=== PATIENT | male | born 1965 | race Caucasian/White ===

== ENCOUNTER → 2018-01-06 10:17 | Outpatient (CLI) | payer MEDICARE, SELFPAY ==
--- NOTE | 2018-01-06 10:27 | US_ITS ---
STUDY: ABDOMINAL ULTRASOUND - RIGHT UPPER QUADRANT REASON FOR VISIT: Male, 52 years old. Pain. Vomiting. TECHNIQUE: Ultrasound evaluation of the right upper quadrant was performed with real-time and static barrett-scale imaging. TECHNICAL QUALITY: Adequate. COMPARISON: None. FINDINGS: Liver: The liver measures 15.1 cm. There is increased echogenicity consistent with fatty infiltration. The bile ducts are within normal limits. There is hepatic color flow. The direction of portal flow is hepatopetal. There is no demonstrated mass lesion. Gallbladder: Normal distended gallbladder. The gallbladder wall measures 3 mm. There is a negative sonographic Pinedo's sign. There is no pericholecystic fluid. There are no gallstones. Common Bile Duct (C.B.D.): The common bile duct measures 4 mm. Pancreas: Normal size of the head, body and tail of the pancreas. There is normal echogenicity of the pancreas. There is no demonstrated pancreatic mass or cyst. Right Kidney: Normal size of the right kidney. The right kidney measures 12.4 cm. Normal renal cortex. There is no demonstrated renal mass or cyst. There is no right hydronephrosis. US/Abdomen Limited IMPRESSION: Fatty liver without evidence of a focal mass. Otherwise, unremarkable right upper quadrant ultrasound. Electronically Signed: Bharat Vasquez, at 18:46 EDT Tel , Service support ,
== END ==
PROVIDERS: Family Provider Family Medicine; PCP Family Medicine; Visit Provider Family Medicine
DX: K76.0 Fatty (change of) liver, not elsewhere classified (principal); R10.9 Unspecified abdominal pain
CPT/HCPCS: 76705

== ENCOUNTER → 2018-01-30 10:47 | Outpatient (CLI) | payer MEDICARE, SELFPAY ==
--- NOTE | 2018-01-30 10:53 | NM_ITS ---
CLINICAL: 52-year-old male with reported history of abdominal pain and nausea. RADIONUCLIDE HEPATOBILIARY SCINTIGRAPHY COMPARISON: Abdominal ultrasound report 01/06/2018 FINDINGS: Following the intravenous administration of 5.7 mCi of 99m Tc Mebrofenin, hepatobiliary images reveal: 1. Relatively prompt and homogeneous radiopharmaceutical concentration is noted by a normal sized liver. No parenchymal defects are identified. 2. Gallbladder activity is identified at 15 minutes post radiopharmaceutical administration. 3. Intestinal tract is not visualized during 60 minutes of sequential image acquisition. Small bowel is defined following the administration of the fatty meal. 4. Washout of the radiopharmaceutical by the hepatic parenchyma appears qualitatively normal. The patient was administered a fatty meal (8 ounces Boost). The post fatty meal ingestion gallbladder ejection fraction calculated at 29 minutes following meal consumption was noted to be 36.0 % (normal greater than 30%). NM/Hepatobilliary Img w/Pharm Int IMPRESSION: 1. NORMAL 99m Tc Mebrofenin hepatobiliary imaging examination with fatty meal ingestion. A. A gallbladder ejection fraction calculated to be greater than 30% following the administration of an ingested fatty meal makes the probability of functional hepatobiliary disease (gallbladder and/or sphincter of Oddi dyskinesia) and/or organic hepatobiliary disease (chronic acalculous cholecystitis and/or cystic duct syndrome) to be low. (Alfredo and Chris, J Nucl Med 43: 1603, 2002). Electronically Signed: Juwan Mckeon DO at 23:52 EDT Tel , Service support ,
== END ==
PROVIDERS: Family Provider Family Medicine; PCP Family Medicine; Referring Provider Family Medicine; Visit Provider Family Medicine
DX: R10.9 Unspecified abdominal pain (principal)
CPT/HCPCS: 78227; A9537

== ENCOUNTER → 2019-02-08 11:34 | Outpatient (CLI) | payer MEDICARE, SELFPAY ==
[2015-03-20 10:43] VITALS: BMI 34.2
[2019-02-08 14:52] LABS: AST(SGOT) 21 U/L (15-37); Alanine Aminotransfer ALT/SGPT 42 U/L (16-61); Anion Gap 6 (5-15); BUN 14 mg/dL (7-18); BUN/Creat Ratio 13.9 RATIO (10-20); Calcium,Total 8.8 mg/dL (8.5-10.1); Chloride 102 mmol/L (98-107); Cholesterol 171 mg/dL (200); Creatinine, Serum 1.01 mg/dL (0.70-1.30); EST Glomerular Filtration Rate 82 mL/min (>60); Est Glom Filt Rate - Afr Amer 99 mL/min (>60); Glucose 177 mg/dL (74-106); High Density Lipoprotein 34 mg/dL; Potassium 3.9 mmol/L (3.5-5.1); Sodium Level 136 mmol/L (136-145); Triglycerides 487 mg/dL
== END ==
PROVIDERS: Family Provider Family Medicine; PCP Family Medicine; Referring Provider Family Medicine; Visit Provider Family Medicine
DX: I10 Essential (primary) hypertension (principal); E78.00 Pure hypercholesterolemia, unspecified
CPT/HCPCS: 36415; 80048; 80061; 84450; 84460

== ENCOUNTER → 2019-03-15 13:10 | Outpatient (CLI) | payer MEDICARE, SELFPAY ==
--- NOTE | 2019-03-15 13:17 | US_ITS ---
STUDY: SCROTUM ULTRASOUND REASON FOR EXAM: Male, 54 years old. Left testicular pain. TECHNIQUE: Ultrasound evaluation of the scrotum was performed with color Doppler and static barrett-scale imaging. COMPARISON: None. FINDINGS: RIGHT TESTICLE INTRATESTICULAR: There is a normal size of the right testicle. The right testicle measures 4.5 x 2.4 x 2.1 cm. There is a homogenous echotexture. There is normal arterial and normal venous vascularity. There is no demonstrated right testicular mass or cyst. EXTRATESTICULAR: The epididymis is normal in size. The epididymis head measures 0.9 x 0.5 x 0.8 cm. There is normal vascularity of the epididymis. There is no demonstrated epididymal cystic structure. There is no demonstrated hydrocele. There is no demonstrated varicocele. There is no demonstrated extratesticular mass or cyst. The scrotal wall measures 0.3 cm. LEFT TESTICLE INTRATESTICULAR: There is a normal size of the left testicle. The left testicle measures 4.3 x 2.4 x 2.5 cm. There is a homogenous echotexture. There is normal arterial and normal venous vascularity. There is no demonstrated left testicular mass or cyst. EXTRATESTICULAR: The epididymis is normal in size. The epididymis head measures 0.7 x 0.9 x 1.2 cm. There is normal vascularity of the epididymis. There are 2, well-defined cystic structure within the epididymis, without internal echoes, consistent with an epididymal cysts, measuring 1.4 x 1.2 x 1.1 cm and 0.8 x 0.6 x 0.7 cm. There is no demonstrated hydrocele. There is no demonstrated varicocele. There is no demonstrated extratesticular mass or cyst. The scrotal wall measures 0.3 cm. US/Testicular with Arterial Flow IMPRESSION: Small left epididymal cysts measuring 1.4 cm and 0.8 cm in maximum dimension. Remainder of the testicular ultrasound within normal limits. No evidence of intratesticular mass. Normal symmetrical color flow within the bilateral testes. Electronically Signed: Ami Zarco MD at 5:36 EST , Service support ,
== END ==
PROVIDERS: Family Provider Family Medicine; PCP Family Medicine; Referring Provider Family Medicine; Visit Provider Family Medicine
DX: N50.89 Other specified disorders of the male genital organs (principal)
CPT/HCPCS: 76870; 93976

== ENCOUNTER → 2019-05-30 10:32 | Outpatient (CLI) | payer MEDICARE, SELFPAY ==
[2015-03-20 10:43] VITALS: BMI 34.2
--- NOTE | 2019-05-30 10:44 | EKG12_ITS ---
Test Reason : PREOP Blood Pressure : / mmHG Vent. Rate : 067 BPM Atrial Rate : 067 BPM P-R Int : 146 ms QRS Dur : 094 ms QT Int : 422 ms P-R-T Axes : 047 020 037 degrees QTc Int : 445 ms Normal sinus rhythm Normal ECG When compared with ECG of 20-MAR-2015 10:56, No significant change was found Confirmed by DELORES WESTFALL ([id number]), pictures editor DAGO COSTA ([id number]) on 05/30/2019 1:13:26 PM Referred By: Mulugeta Perales Confirmed By:DELORES WESTFALL
[2019-05-30 11:28] LABS: Hematocrit 42.8 % (40-54); Hemoglobin 14.8 g/dL (13.0-16.5); Mean Corp Hgb Conc 34.6 g/dL (32-36); Mean Corpuscular Hgb 30.4 pg (27.0-32.0); Mean Corpuscular Volume 87.9 fL (80-94); Mean Platelet Vol. 10.3 fl (6.2-12.0); Platelet Count 177 K/mm3 (150-450); RBC Distribution Width CV 12.2 % (11.6-14.6); RBC Distribution Width SD 39.4 fl (35.1-43.9); Red Blood Count 4.87 M/mm3 (4.6-6.2)
[2019-05-30 11:57] LABS: Anion Gap 6 (5-15); BUN 11 mg/dL (7-18); BUN/Creat Ratio 9.4 RATIO (10-20); Calcium,Total 8.7 mg/dL (8.5-10.1); Chloride 107 mmol/L (98-107); Creatinine, Serum 1.17 mg/dL (0.70-1.30); EST Glomerular Filtration Rate 69 mL/min (>60); Est Glom Filt Rate - Afr Amer 84 mL/min (>60); Glucose 209 mg/dL (74-106); Sodium Level 138 mmol/L (136-145)
== END ==
LOC: LAB.FUTURE 10:34 → LAB 10:36
PROVIDERS: PCP Family Medicine; Referring Provider Urology; Visit Provider Urology
DX: Z01.812 Encounter for preprocedural laboratory examination (principal); I10 Essential (primary) hypertension
CPT/HCPCS: 36415; 80048; 85027; 93005

== ENCOUNTER → 2020-06-23 14:21 | Outpatient (CLI) | payer MEDICARE, SELFPAY ==
[2015-03-20 10:43] VITALS: BMI 34.2
[2020-06-23 15:05] LABS: PSA,Total - Annual Screen 0.76 ng/mL (0.00-4.00)
== END ==
PROVIDERS: PCP Family Medicine; Referring Provider Urology; Visit Provider Urology
DX: Z12.5 Encounter for screening for malignant neoplasm of prostate (principal)
CPT/HCPCS: 36415; 84153; G0103

== ENCOUNTER → 2020-09-15 13:51 | Outpatient (CLI) | payer MEDICARE, SELFPAY ==
[2015-03-20 10:43] VITALS: BMI 34.2
[2020-09-15 17:00] LABS: AST(SGOT) 21 U/L (15-37); Alanine Aminotransfer ALT/SGPT 35 U/L (16-61); Anion Gap 7 (5-15); BUN 14 mg/dL (7-18); BUN/Creat Ratio 13.9 RATIO (10-20); Chloride 105 mmol/L (98-107); Cholesterol 154 mg/dL (200); Creatinine, Serum 1.01 mg/dL (0.70-1.30); EST Glomerular Filtration Rate 82 mL/min (>60); Est Glom Filt Rate - Afr Amer 99 mL/min (>60); Glucose 94 mg/dL (74-106); High Density Lipoprotein 43 mg/dL; Potassium 3.6 mmol/L (3.5-5.1); Sodium Level 139 mmol/L (136-145); Thyroid Stim Hormone (TSH) 1.85 uIU/mL (0.358-3.74); Triglycerides 167 mg/dL; Very Low Density Lipoprotein 33 mg/dL (5-40)
== END ==
PROVIDERS: PCP Family Medicine; Referring Provider Family Medicine; Visit Provider Family Medicine
DX: I10 Essential (primary) hypertension (principal); E78.5 Hyperlipidemia, unspecified
CPT/HCPCS: 36415; 80048; 80061; 84443; 84450; 84460

== ENCOUNTER → 2021-03-03 14:48 | Outpatient (CLI) | payer MEDICARE, SELFPAY ==
[2021-03-03 18:21] LABS: PSA,Total - Annual Screen 0.81 ng/mL (0.00-4.00)
== END ==
PROVIDERS: PCP Family Medicine; Referring Provider Family Medicine; Visit Provider Family Medicine
DX: Z12.5 Encounter for screening for malignant neoplasm of prostate (principal)
CPT/HCPCS: 36415; 84153; G0103

== ENCOUNTER → 2021-08-31 | Outpatient (CLI) | payer MEDICARE, SELFPAY ==
[2021-08-31 18:27] LABS: AST(SGOT) 21 U/L (15-37); Alanine Aminotransfer ALT/SGPT 42 U/L (16-61); Anion Gap 8 (5-15); BUN 14 mg/dL (7-18); BUN/Creat Ratio 15.8 RATIO (10-20); Chloride 104 mmol/L (98-107); Cholesterol 190 mg/dL (200); Creatinine, Serum 0.88 mg/dL (0.70-1.30); EST Glomerular Filtration Rate 95 mL/min (>60); Est Glom Filt Rate - Afr Amer 115 mL/min (>60); Glucose 99 mg/dL (74-106); High Density Lipoprotein 42 mg/dL; Potassium 4.5 mmol/L (3.5-5.1); Sodium Level 139 mmol/L (136-145); Triglycerides 263 mg/dL; Very Low Density Lipoprotein 53 mg/dL (5-40)
== END | disposition home or self-care (01) ==
LOC: MFPLAB 14:30
PROVIDERS: PCP Family Medicine; Referring Provider Family Medicine; Visit Provider Family Medicine
DX: E78.5 Hyperlipidemia, unspecified (principal); I10 Essential (primary) hypertension; Z12.5 Encounter for screening for malignant neoplasm of prostate
CPT/HCPCS: 36415; 80048; 80061; 84450; 84460

== ENCOUNTER → 2022-03-04 | Outpatient (CLI) | payer MEDICARE, SELFPAY ==
--- NOTE | 2022-03-04 14:51 | RAD_ITS ---
EXAM: XR LEFT KNEE COMPLETE, 4 OR MORE VIEWS CLINICAL INDICATION: KNEE PAIN TECHNIQUE: Four or more views of the left knee. This report was created using [employer] report generation technology. COMPARISON: None. FINDINGS: BONES/JOINTS: Narrowing of the medial knee joint compartment noted. Mild osteophytosis. No acute fracture or subluxation. Minimal joint effusion. SOFT TISSUES: Normal. No soft tissue swelling or gas. No radiopaque foreign body. RAD/Knee 4 or More Views IMPRESSION: DJD. Minimal joint effusion. Electronically Signed: Shaun Cruz MD at 16:46 EST ,
[2022-03-04 18:04] LABS: PSA,Total - Annual Screen 0.77 ng/mL (0.00-4.00)
== END | disposition home or self-care (01) ==
PROVIDERS: PCP Family Medicine; Referring Provider Family Medicine; Visit Provider Family Medicine
DX: M25.562 Pain in left knee (principal); Z12.5 Encounter for screening for malignant neoplasm of prostate
CPT/HCPCS: 36415; 73564; 84153; G0103

== ENCOUNTER → 2022-11-07 | Outpatient (CLI) | payer MEDICARE, SELFPAY ==
[2022-11-07 12:43] LABS: AST(SGOT) 20 U/L (15-37); Alanine Aminotransfer ALT/SGPT 38 U/L (16-61); Anion Gap 6 (5-15); BUN 14 mg/dL (7-18); BUN/Creat Ratio 15.4 RATIO (10-20); Chloride 106 mmol/L (98-107); Cholesterol 167 mg/dL (200); Creatinine, Serum 0.91 mg/dL (0.70-1.30); EST Glomerular Filtration Rate 92 mL/min (>60); Est Glom Filt Rate - Afr Amer 111 mL/min (>60); Glucose 167 mg/dL (74-106); High Density Lipoprotein 40 mg/dL; Microalbumin,Random Urine 22.2 mg/L (NO RANGE EST.); Microalbumin:Creatinine Ratio 11.7 mg/g CRE (<30 mg/g CRE); Sodium Level 136 mmol/L (136-145); Triglycerides 196 mg/dL; Very Low Density Lipoprotein 39 mg/dL (5-40)
== END | disposition home or self-care (01) ==
PROVIDERS: PCP Family Medicine; Referring Provider Family Medicine; Visit Provider Family Medicine
DX: I10 Essential (primary) hypertension (principal); E78.5 Hyperlipidemia, unspecified
CPT/HCPCS: 36415; 80048; 80061; 82043; 82570; 84450; 84460

== ENCOUNTER → 2023-03-10 | Outpatient (CLI) | payer MEDICARE, SELFPAY ==
[2023-03-10 18:59] LABS: PSA,Total - Annual Screen 0.79 ng/mL (0.00-4.00)
== END | disposition home or self-care (01) ==
LOC: MFPLAB 14:48
PROVIDERS: PCP Family Medicine; Visit Provider Family Medicine
DX: Z12.5 Encounter for screening for malignant neoplasm of prostate (principal)
CPT/HCPCS: 36415; 84153; G0103

== ENCOUNTER → 2023-10-13 | Outpatient (CLI) | payer MEDICARE, SELFPAY ==
--- NOTE | 2023-10-13 10:49 | RAD_ITS ---
INDICATION: pain EXAMINATION/TECHNIQUE: X-RAY - LEFT XR Knee Complete 4 Views or More 4 VIEWS COMPARISON: Prior study dated: 03/04/2022 FINDINGS: SOFT TISSUES: No soft tissue swelling or gas. No radiopaque foreign body. BONES/JOINTS: No fracture or dislocation. There is a mild medial joint space narrowing. No subchondral sclerosis or lesions. There are mild osteophytes associated with patellofemoral compartment. No destructive bony process. There is a small joint effusion. RAD/Knee 4 or More Views IMPRESSION: 1. No evidence fracture or dislocation. No destructive bony process. 2. Mild osteoporotic changes most significantly in the medial compartment and patellofemoral compartment. Small joint effusion noted. Electronically Signed: Juwan Mccormick MD at 17:20 EDT ,
== END | disposition home or self-care (01) ==
LOC: MTRAD 10:49
PROVIDERS: PCP Family Medicine; Referring Provider Family Medicine; Visit Provider Family Medicine
DX: M25.562 Pain in left knee (principal)
CPT/HCPCS: 73564

== ENCOUNTER → 2023-12-08 | Outpatient (CLI) | payer MEDICARE, SELFPAY ==
[2023-12-08 17:57] LABS: Protein, Urine (Random) 15.6 mg/dL (<11.9); Protein:Creat Ratio 68 mg/g CRE (0-200)
[2023-12-08 18:06] LABS: AST(SGOT) 23 U/L (15-37); Alanine Aminotransfer ALT/SGPT 42 U/L (16-61); Albumin, Serum 4.1 g/dL (3.2-5.0); Alkaline Phosphatase 75 U/L (45-117); Anion Gap 8 (5-15); BUN 15 mg/dL (7-18); Bilirubin, Direct 0.16 mg/dL (0.00-0.30); Calcium,Total 9.1 mg/dL (8.5-10.1); Chloride 102 mmol/L (98-107); Cholesterol 156 mg/dL (200); Creatinine, Serum 1.07 mg/dL (0.70-1.30); EST Glomerular Filtration Rate 76 mL/min (>60); Est Glom Filt Rate - Afr Amer 91 mL/min (>60); Globulin 3.2 g/dL (2.2-4.2); Glucose 191 mg/dL (74-106); High Density Lipoprotein 50 mg/dL; Protein, Total 7.3 g/dL (6.4-8.2); Sodium Level 137 mmol/L (136-145); Triglycerides 192 mg/dL; Very Low Density Lipoprotein 38 mg/dL (5-40)
== END | disposition home or self-care (01) ==
LOC: MFPLAB 14:12
PROVIDERS: PCP Family Medicine; Visit Provider Family Medicine
DX: E11.69 Type 2 diabetes mellitus with other specified complication (principal)
CPT/HCPCS: 36415; 80048; 80061; 80076; 82570; 84156; 84443

== ENCOUNTER → 2024-06-14 | Outpatient (CLI) | payer MEDICARE, SELFPAY ==
[2024-06-14 13:10] LABS: PSA,Total - Annual Screen 4.11 ng/mL (0.00-4.00)
== END | disposition home or self-care (01) ==
LOC: MFPLAB 10:15
PROVIDERS: PCP Family Medicine; Referring Provider Family Medicine; Visit Provider Family Medicine
DX: Z12.5 Encounter for screening for malignant neoplasm of prostate (principal)
CPT/HCPCS: 36415; 84153; G0103

== ENCOUNTER → 2024-12-27 | Outpatient (CLI) | payer MEDICARE, SELFPAY ==
[2024-12-27 18:28] LABS: AST(SGOT) 19 U/L (<=37); Alanine Aminotransfer ALT/SGPT 25 U/L (<=46); Albumin, Serum 4.7 g/dL (3.5-5.0); Alkaline Phosphatase 87 U/L (40-129); Anion Gap 12 (5-15); BUN 18 mg/dL (4-19); BUN/Creat Ratio 15.9 RATIO (10-20); Calcium,Total 9.8 mg/dL (7.6-11.0); Carbon Dioxide 23.9 mmol/L (21.0-32.0); Chloride 105 mmol/L (98-108); Globulin 2.5 g/dL (2.2-4.2); Glucose 133 mg/dL (70-99); Potassium 4.3 mmol/L (3.3-5.1)
[2024-12-27 18:29] LABS: Creatinine, Urine (random) 416.00 mg/dL (39.00-259.00); Microalbumin,Random Urine 47.9 mg/L (<20 mg/L)
== END | disposition home or self-care (01) ==
LOC: MFPLAB 16:36
PROVIDERS: PCP Family Medicine; Visit Provider Family Medicine
DX: E11.8 Type 2 diabetes mellitus with unspecified complications (principal)
CPT/HCPCS: 36415; 80053; 82043; 82570

== ENCOUNTER → 2025-01-22 | Outpatient (CLI) | payer MEDICARE, SELFPAY ==
[2025-01-23 13:08] LABS: PSA, Free 0.25 ng/mL; PSA, Free % 19.5 % (.); PSA, Total Ultrasensitive 1.280 ng/mL (0.000-4.000)
--- NOTE | 2025-01-23 15:47 | STRESSREP_ITS ---
Stress Test Report Date: 01/22/2025 Procedure: Exercise tolerance test Indications: Dyspnea on exertion Consent: Per the patient Procedure: The patient exercised on a Francis protocol for 6 minutes achieving a peak heart rate of 134 bpm (82% predicted maximal heart rate) with a peak blood pressure 200/88 mmHg and a peak MET capacity of approximately 7.0 MET's. The baseline ECG demonstrated sinus rhythm. The peak exercise ECG showed sinus tachycardia with no ischemic changes. There were no cardiac dysrhythmias pretest, during exercise, or recovery. The functional capacity was considered average. The patient had no complaints of chest discomfort during exercise or recovery. The examination was discontinued secondary to dyspnea. Impression: 1. Technically adequate exercise tolerance test 2. Peak exercise ECG with no ischemic changes. No angina reported. 3. There were no cardiac dysrhythmias during exercise or recovery This note was generated with [employer] software. It may contain incorrect words, spelling, and punctuation that were not noted in checking the note before signing.
--- NOTE | 2025-01-23 15:47 | STRESSREP_ITS ---
Stress Test Report Date: 01/22/2025 Procedure: Exercise tolerance test Indications: Dyspnea on exertion Consent: Per the patient Procedure: The patient exercised on a Francis protocol for 6 minutes achieving a peak heart rate of 134 bpm (82% predicted maximal heart rate) with a peak blood pressure 200/88 mmHg and a peak MET capacity of approximately 7.0 MET's. The baseline ECG demonstrated sinus rhythm. The peak exercise ECG showed sinus tachycardia with no ischemic changes. There were no cardiac dysrhythmias pretest, during exercise, or recovery. The functional capacity was considered average. The patient had no complaints of chest discomfort during exercise or recovery. The examination was discontinued secondary to dyspnea. Impression: 1. Technically adequate exercise tolerance test 2. Peak exercise ECG with no ischemic changes. No angina reported. 3. There were no cardiac dysrhythmias during exercise or recovery This note was generated with [email or web address] software. It may contain incorrect words, spelling, and punctuation that were not noted in checking the note before signing.
== END | disposition home or self-care (01) ==
PROVIDERS: Urology; PCP Family Medicine; Referring Provider Family Medicine; Visit Provider Family Medicine
DX: R06.02 Shortness of breath (principal); R97.20 Elevated prostate specific antigen [PSA]
CPT/HCPCS: 36415; 84153; 84154; 93017